=== PATIENT | female | born 1955 | race Caucasian/White ===

== ENCOUNTER → 2016-10-04 | Outpatient (CLI) | payer BC ==
[~2016-10-04] MED LIST: KEFLEX PO; LEXAPRO PO; VICODIN 5/500 T1 TAB PO; VICODIN PO; ZYRTEC PO
--- NOTE | ~2016-10-04 | MY29 ---
[facility] A Service of [facility] RADIOLOGY TEXT RESULTS PATIENT: JOSE RAO LOCATION: [facility] : 57 UNIT #: [id number] AGE: [address]: Olga Blanco MD SEX: F ORDER DR: [id number] [facility] [place], [place] [address] [id number] O MR#: [id number] Acc #: [id number] NAME: JOSE RAO : 1955 SEX: F STUDY DATE/TIME: 10/04/2016 9:15 UNIT: [facility] ROOM: STUDY DESCRIPTION: [facility] SCREENING W/ CAD BILAT Attending Physician: Olga Blanco M.D. Ordering Physician: Olga Blanco M.D. Primary Care Physician: Olga Blanco M.D. MEDICAL IMAGING REPORT This report is preliminary unless electronic signature is present EXAMINATION Bilateral digital screening mammogram with CAD DATE: 10/04/2016 HISTORY No personal or family history of breast cancer or current or complaints. COMPARISON Bilateral screening mammogram 09/05/2015, 08/31/2014, 08/07/2013. FINDINGS CC and MLO views were obtained of each breast utilizing digital technique and reviewed with an FDA-approved CAD device. Scattered fibroglandular densities are present bilaterally. No new or suspicious nodule, architectural distortion or clustered microcalcification is seen. There is no abnormal skin thickening or nipple retraction. IMPRESSION BIRADS category 1. Negative screening mammogram. Routine screening mammogram is recommended 1 year. Patients over the age of 40 are entered into a reminder system with target due date for the next mammogram. A result letter will also be sent to the patient. BIRADS: 1 - negative [facility] A Service of [facility] RADIOLOGY TEXT RESULTS PATIENT: JOSE RAO LOCATION: [facility] : 57 UNIT #: [id number] AGE: [address]: Olga Blanco MD SEX: F ORDER DR: Dictated by... Ebony Cuenca M.D. THIS IS AN ELECTRONICALLY VERIFIED REPORT Ebony Cuenca M.D. at 10/05/2016 1:52 PM [facility]/luis TD: 10/04/2016 11:49 JOB #: [id number] MEDICAL IMAGING REPORT Page 1 of 1 COPY
== END | disposition home or self-care (01) ==
LOC: CWCC 08:52
DX: Z12.31 Encounter for screening mammogram for malignant neoplasm of breast (principal)
CPT/HCPCS: G0202